=== PATIENT | male | born 1950 | race Caucasian/White ===

== ENCOUNTER → 2016-08-07 | Outpatient (CLI) | payer OTHER | LOC: MW.CHUR 12:56 | PROVIDERS: ATTEND Urology | DX: Z85.51 Personal history of malignant neoplasm of bladder (principal) | CPT/HCPCS: 81001 ==

== ENCOUNTER 2016-09-04 11:38 | Emergency (ER) | payer OTHER ==
--- NOTE | 2016-09-04 12:37 | EDM.PDOC ---
ED HPI LOWER BACK PAIN/INJURY - General Chief Complaint: Back Pain or Injury Stated Complaint: LEFT BACK PAIN Time Seen by Provider: 09/04/16 12:10 Source of Information: Reports: Patient History Limitations: Reports: No limitations - History of Present Illness INITIAL COMMENTS - FREE TEXT/NARRATIVE: HISTORY AND PHYSICAL: History of present illness: [Patient comes to the emergency room complaining of pain to his left flank area. 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 States that the pain began around 1 AM yesterday morning and has gradually gotten worse since onset. 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 Pain has gradually worsened over the past day. When he is at rest the pain is 3/10. With activity the pain is 7-8/ 10. Has not taken any medications for his pain. He denies having any radiation of pain into his abdomen and groin. The pain is just over the left flank area. He had left lower rib fractures in May 2016. Had a history of ureteroscopy in the mid . Stone or obstruction was found. He states that today's pain feels similar. Denies fever and chills, chest pain shortness of breath and difficulty breathing. No recent illnesses or infection. Has felt some nausea when pain is at its worst but no vomiting. No change in bowel or bladder. He denies hematuria dysuria urinary frequency. No swelling in his feet or lower legs. Has a history of migraine headaches] Review of systems: As per history of present illness and below otherwise all systems reviewed and negative. Past medical history: As per history of present illness and as reviewed below otherwise noncontributory. Surgical history: As per history of present illness and as reviewed below otherwise noncontributory. Social history: No reported history of drug or alcohol abuse. Family history: As per history of present illness and as reviewed below otherwise noncontributory. Physical exam: HEENT: Atraumatic, normocephalic. oral mucous membranes moist, throat clear., neck supple, nontender, no lymphadenopathy. Lungs: Clear to auscultation, breath sounds equal bilaterally, chest nontender. Heart: S1S2, regular, negative for clicks, rubs, or JVD. Abdomen: Bowel sounds are normoactive throughout. Soft, nondistended, nontender. Negative for masses or hepatosplenomegaly. Tender over left flank and left posterior lower ribs. Pelvis: Stable nontender. Genitourinary: Deferred. Rectal: Deferred. Extremities: Atraumatic, negative for cords or calf pain. Cyanosis or edema to feet or lower legs. Neurovascular unremarkable. Neuro: Awake, alert, oriented. Cranial nerves II through XII unremarkable. Motor and sensory unremarkable throughout. Exam nonfocal. Diagnostics: [UA with micro, CT abdomen and pelvis without contrast Urinalysis is unremarkable. CT shows no stones. Incidental findings of diverticulosis.] Impression: [Left posterior lower rib pain] Plan: [Discussed with patient that his CT and urinalysis are completely normal. Other than incidental finding of diverticulosis. Discussed with patient that since tests in the ER are unremarkable, the cause of his discomfort is likely due to the rib fractures he sustained previously. he declines pain medication given in the ER and states that he will take the tramadol that he has at home. Recommend the patient continue to monitor and followup in ER as needed. Recheck with PCP in 48-72 hours. He verbalized understanding of today's plan, all questions are answered and concerns are addressed.] Definitive disposition and diagnosis as appropriate pending reevaluation and review of above. - Related Data Allergies/ADRs: Allergies Allergy/AdvReac Type Severity Reaction Status Date / Time ibuprofen Allergy Stomach Verified 09/04/16 11:57 Upset morphine Allergy Difficulty Verified 09/04/16 11:57 Breathing Home Meds: Home Meds Aspirin [Children's Aspirin] 81 mg PO DAILY 07/09/14 [History] Cyclobenzaprine [Flexeril] 1 tab PO ASDIRECTED PRN 11/24/14 [History] Multivitamin [Multiple Vitamins] 1 tab PO DAILY 11/24/14 [History] traMADol [Ultram] 1 tab PO ASDIRECTED PRN 11/24/14 [History] Omeprazole 20 mg PO DAILY 01/16/15 [History] Simvastatin [Zocor] 40 mg PO DAILY 01/16/15 [History] Ascorbic Acid [Vitamin C] 2,000 mg PO DAILY 06/04/16 [History] Calcium Polycarbophil [Fibercon] 1 tab PO DAILY 06/04/16 [History] Lutein 10 mg PO DAILY 06/04/16 [History] Vitamin A 30,000 units PO DAILY 06/04/16 [History] Vitamin E 2 caplet PO DAILY 06/04/16 [History] Amitriptyline [Elavil] 25 mg PO BEDTIME 09/04/16 [History] Omeprazole Magnesium [Prilosec Otc] 0 mg PO BID 09/04/16 [History] Past Medical History HEENT History: Reports: Other (see below) Other HEENT History: wears glasses Cardiovascular History: Reports: High cholesterol Other Respiratory History: Reports 20 plus years of smoking current use 1/2 pack / day Gastrointestinal History: Reports: GERD Other Genitourinary History: Hematuria Musculoskeletal History: Reports: Back pain, chronic Neurological History: Reports: Headaches, chronic, Migraines Other Neuro History: hx of head trauma from accident Other Hematologic History: Current hematuria - Infectious Disease History Infectious Disease History: Reports: Chicken pox - Past Surgical History Head Surgeries/Procedures: Reports: None Other Cardiovascular Surgeries/Procedures: H: Angiogram Other Male Surgeries/Procedures: Current bladder tumor Neurological Surgical History: Reports: Lumbar spine Other Neurological Surgeries/Procedures: "back surgery" Musculoskeletal Surgical History: Reports: Arthroscopic knee Other Musculoskeletal Surgeries/Procedures:: Right Knee Scope, Compression fracture to Low back, chronic back spasms Social & Family History - Family History Family Medical History: Noncontributory - Tobacco Use Smoking Status *Q: Current Every Day Smoker Years of Tobacco use: 30 Packs/Tins Daily: 1 Used Tobacco, but Quit: No Second Hand Smoke Exposure: Yes - Caffeine Use Caffeine Use: Reports: Coffee - Alcohol Use Days Per Week of Alcohol Use: 0 - Recreational Drug Use Recreational Drug Use: No Drug Use in Last 12 Months: No ED ROS GENERAL - Review of Systems Review Of Systems: ROS reveals no pertinent complaints other than HPI. ED EXAM,LOWER BACK PAIN/INJURY - Physical Exam Exam: See Below Course - Vital Signs Last Recorded V/S: Last Vital Signs Temp 97.9 F 09/04/16 14:20 Pulse 77 09/04/16 14:20 Resp 16 09/04/16 14:20 BP 134/88 09/04/16 14:20 Pulse Ox 96 09/04/16 14:20 - Orders/Labs/Meds Labs: Laboratory Tests 09/04/16 Range/Units 12:05 Urine Color YELLOW Urine Appearance CLEAR Urine pH 6.0 (5.0-8.0) Ur Specific Agu[place]re 1.010 (1.001-1.035) Urine Protein NEGATIVE (NEGATIVE) mg/dL Urine Glucose (UA) NEGATIVE (NEGATIVE) mg/dL Urine Ketones NEGATIVE (NEGATIVE) mg/dL Urine Occult Blood NEGATIVE (NEGATIVE) Urine Nitrite NEGATIVE (NEGATIVE) Urine Bilirubin NEGATIVE (NEGATIVE) Urine Urobilinogen 0.2 (<2.0) EU/dL Ur Leukocyte Esterase NEGATIVE (NEGATIVE) Urine RBC NONE SEEN (0-2/HPF) Urine WBC NONE SEEN (0-5/HPF) Ur Epithelial Cells RARE (NONE-FEW) Urine Bacteria RARE (NEGATIVE) Departure - Departure Time of Disposition: 14:00 Disposition: Home, Self-Care 01 Condition: good Clinical Impression: Rib pain on left side Instructions: Chest Wall Pain Referrals: Seb Fleming MD [Primary Care Provider] - Forms: ED Department Discharge Additional Instructions: The following information is given to patients seen in the emergency department who are being discharged to home. This information is to outline your options for follow-up care. We provide all patients seen in our emergency department with a follow-up referral. The need for follow-up, as well as the timing and circumstances, are variable depending upon the specifics of your emergency department visit. If you don't have a primary care physician on staff, we will provide you with a referral. We always advise you to contact your personal physician following an emergency department visit to inform them of the circumstance of the visit and for follow-up with them and/or the need for any referrals to a consulting specialist. The emergency department will also refer you to a specialist when appropriate. This referral assures that you have the opportunity for follow-up care with a specialist. All of these measure are taken in an effort to provide you with optimal care, which includes your follow-up. Under all circumstances we always encourage you to contact your private physician who remains a resource for coordinating your care. When calling for follow-up care, please make the office aware that this follow-up is from your recent emergency room visit. If for any reason you are refused follow-up, please contact the [facility] emergency department at and asked to speak to the emergency department charge nurse. [facility] [address] [place] [id number] scan shows no kidney stones. An incidental finding on CT is diverticulosis. Followup with primary care provider in 48-72 hours. Gentle stretching to prevent stiffness your rib area. Take home medications as needed for pain. Return to ER as needed as discussed.
--- NOTE | 2016-09-04 13:40 | CT ---
CT of the abdomen and pelvis without contrast. HISTORY: Pain TECHNIQUE: Axial CT images were obtained of the abdomen and pelvis without contrast. Coronal and sag ittal reconstructions obtained. FINDINGS: The lung bases are clear, no pleural effusion. There is mild focal fatty infiltration near the falciform ligament. The spleen, adrenal glands, and pancreas appear unremarkable for noncontrast examination. The gallbladder appears normal. There is no bulky retroperitoneal lymphadenopathy. No abdominal ascites. There are no calcifications noted within the kidneys or along the courses of the ureters bilaterally . The large and small bowel are normal in caliber without evidence of obstruction. The appendix appear s normal. Minimal diverticulosis is noted. There is no bulky pelvic lymphadenopathy. No free fluid. No free air. The urinary bladder appears normal. There are healing subacute rib fractures. IMPRESSION: 1. No acute findings demonstrated within the abdomen or pelvis. 2. Diverticulosis without evidence diverticulitis. 3. Healing subacute left rib fractures.
[2016-09-04 14:26] VITALS: BP 134/88
== END 2016-09-04 14:20 | disposition home or self-care (01) ==
LOC: MW.ED 11:38
DX: R07.81 Pleurodynia (principal); E78.00 Pure hypercholesterolemia, unspecified; K21.9 Gastro-esophageal reflux disease without esophagitis; F17.210 Nicotine dependence, cigarettes, uncomplicated; Z79.82 Long term (current) use of aspirin; Z79.899 Other long term (current) drug therapy; Z98.890 Other specified postprocedural states; Z88.5 Allergy status to narcotic agent; Z88.6 Allergy status to analgesic agent
CPT/HCPCS: 74176; 74176-26; 81001; 99283; 99283-25

== ENCOUNTER 2017-07-14 12:23 | Observation (INO) | payer MEDICARE, OTHER ==
[2017-07-14] MEDS ORDERED: Sodium Chloride 0.9% 2.5 ML Syringe FLUSH PRN (12:32)
[2017-07-14] MEDS ORDERED: Sodium Chloride 0.9% 10 ML Syringe FLUSH PRN (12:32)
--- NOTE | 2017-07-14 12:34 | EDM.PDOC ---
ED HPI GENERAL MEDICAL PROBLEM - General Chief Complaint: Respiratory Problem Stated Complaint: CHEST PAIN Time Seen by Provider: 07/14/17 12:26 Source of Information: Reports: Patient History Limitations: Reports: No Limitations - History of Present Illness INITIAL COMMENTS - FREE TEXT/NARRATIVE: History of present illness: []Patient saw Dr. Fleming last week and his metoprolol dose was doubled. Since then he has been feeling more short of breath and tired. Has had some chest tightness with exertion the last episode being at 8:00 this morning lasting approximately 5 minutes. Patient does have a history of a MA while the stent was being placed in [facility] by Dr. Orantes in June. Review of systems: As per history of present illness and below otherwise all systems reviewed and negative. Past medical history: As per history of present illness and as reviewed below otherwise noncontributory. Surgical history: As per history of present illness and as reviewed below otherwise noncontributory. Social history: No reported history of drug or alcohol abuse. Family history: As per history of present illness and as reviewed below otherwise noncontributory. Physical exam: General: Well developed, well nourished in NAD HEENT: Atraumatic, normocephalic, pupils reactive, negative for conjunctival pallor or scleral icterus, mucous membranes moist, throat clear, neck supple, nontender, trachea midline. Lungs: Clear to auscultation, breath sounds equal bilaterally, chest nontender. Heart: S1S2, regular, negative for clicks, rubs, or JVD. Abdomen: Soft, nondistended, nontender. Negative for masses or hepatosplenomegaly. Negative for costovertebral tenderness. Pelvis: Stable nontender. Genitourinary: Deferred. Rectal: Deferred. Extremities: Atraumatic, negative for cords or calf pain. Neurovascular unremarkable. Neuro: Awake, alert, oriented. Cranial nerves II through XII unremarkable. Cerebellum unremarkable. Motor and sensory unremarkable throughout. Exam nonfocal. Diagnostics: []EKG, chest, labs all negative for acute MA abnormalities Therapeutics: []Patient was observed in the ED while awaiting lab results and develop substernal chest pain radiated to his right arm. At this point I did consult freight broker agent, Dr. Lundy in [facility] reviewed his case. Did not feel that the origin of his chest pain was from his heart after reviewing his angiogram and following studies. Patient was given nitroglycerin, IV fluids and Dilaudid resolved his pain Impression: []Chest pain Plan: []Admit to hospitalist for rule out MA. Patient has an appointment with Dr. Orantes his freight broker agent in [facility] next week. Definitive disposition and diagnosis as appropriate pending reevaluation and review of above. Mid-Sternal Chest Pain Score (Numeric/FACES): 4 - Related Data Allergies Allergy/AdvReac Type Severity Reaction Status Date / Time ibuprofen Allergy Stomach Verified 09/04/16 11:57 Upset morphine Allergy Difficulty Verified 09/04/16 11:57 Breathing Home Meds: Home Meds Aspirin [Children's Aspirin] 81 mg PO QPM 07/09/14 [History] Cyclobenzaprine [Flexeril] 10 mg PO TID PRN 11/24/14 [History] Multivitamin [Multiple Vitamins] 1 tab PO DAILY 11/24/14 [History] traMADol [Ultram] 50 mg PO BEDTIME PRN 11/24/14 [History] Omeprazole 20 mg PO BEDTIME 01/16/15 [History] Ascorbic Acid [Vitamin C] 2,000 mg PO DAILY 06/04/16 [History] Lutein 10 mg PO 1200 06/04/16 [History] Vitamin A 30,000 units PO 1200 06/04/16 [History] Vitamin E 800 unit PO 1200 06/04/16 [History] Amitriptyline [Elavil] 25 mg PO BEDTIME 09/04/16 [History] Clopidogrel Bisulfate [Clopidogrel] 75 mg PO DAILY 07/14/17 [History] Ezetimibe 10 mg PO DAILY 07/14/17 [History] Famotidine 20 mg PO BID 07/14/17 [History] Isosorbide Mononitrate [Isosorbide Mononitrate ER] 30 mg PO DAILY 07/14/17 [ History] Metoprolol Succinate 25 mg PO QPM 07/14/17 [History] Rosuvastatin [Crestor] 20 mg PO QPM 07/14/17 [History] amLODIPine [Norvasc] 5 mg PO DAILY 07/14/17 [History] Past Medical History HEENT History: Reports: Other (See Below) Other HEENT History: wears glasses Cardiovascular History: Reports: High Cholesterol Other Respiratory History: Reports 20 plus years of smoking current use 1/2 pack / day Gastrointestinal History: Reports: GERD Other Genitourinary History: Hematuria Musculoskeletal History: Reports: Back Pain, Chronic Neurological History: Reports: Headaches, Chronic, Migraines Other Neuro History: hx of head trauma from accident Other Hematologic History: Current hematuria - Infectious Disease History Infectious Disease History: Reports: Chicken Pox - Past Surgical History Male Surgical History: Reports: TURBT-Transurethral Resection of Bladder Tumor Neurological Surgical History: Reports: Lumbar Spine Musculoskeletal Surgical History: Reports: Arthroscopic Knee Social & Family History - Family History Family Medical History: Noncontributory - Tobacco Use Smoking Status *Q: Current Every Day Smoker Years of Tobacco use: 30 Packs/Tins Daily: 1 Used Tobacco, but Quit: No Second Hand Smoke Exposure: Yes - Caffeine Use Caffeine Use: Reports: Coffee - Alcohol Use Days Per Week of Alcohol Use: 0 - Recreational Drug Use Recreational Drug Use: No Drug Use in Last 12 Months: No ED ROS GENERAL - Review of Systems Review Of Systems: See Below (See history of present illness) ED EXAM, GENERAL - Physical Exam Exam: See Below (See history of present illness) Course - Vital Signs Last Recorded V/S: Last Vital Signs Temp 97.8 F 07/14/17 12:25 Pulse 97 07/14/17 13:59 Resp 16 07/14/17 12:25 BP 123/81 07/14/17 13:59 Pulse Ox 94 L 07/14/17 12:25 - Orders/Labs/Meds Orders: Active Orders 24 hr Category Date Time Status Patient Status [ADT] Stat ADT 07/14/17 14:09 Active EKG Documentation Completion [RC] STAT Care 07/14/17 12:32 Active EKG Documentation Completion [RC] STAT Care 07/14/17 13:30 Active HYDROmorphone [Dilaudid] Med 07/14/17 14:05 Active 0.5 mg IVPUSH Q1H PRN Sodium Chloride 0.9% [Normal Saline] 1,000 ml Med 07/14/17 14:14 Active IV STAT Sodium Chloride 0.9% [Saline Flush] Med 07/14/17 12:32 Active 10 ml FLUSH ASDIRECTED PRN Sodium Chloride 0.9% [Saline Flush] Med 07/14/17 12:32 Active 2.5 ml FLUSH ASDIRECTED PRN Saline Lock Insert [OM.PC] Stat Oth 07/14/17 12:32 Ordered Medication Orders Hydromorphone HCl (Dilaudid) 0.5 mg IVPUSH Q1H PRN PRN Reason: Pain Last Admin: 07/14/17 14:17 Dose: 0.5 mg Sodium Chloride (Normal Saline) 1,000 mls @ 150 mls/hr IV STAT ONE Stop: 07/14/17 20:53 Last Admin: 07/14/17 14:18 Dose: 150 mls/hr Sodium Chloride (Saline Flush) 10 ml FLUSH ASDIRECTED PRN PRN Reason: Keep Vein Open Last Admin: 07/14/17 13:00 Dose: 10 ml Sodium Chloride (Saline Flush) 2.5 ml FLUSH ASDIRECTED PRN PRN Reason: Keep Vein Open Last Admin: 07/14/17 13:00 Dose: 2.5 ml Labs: Laboratory Tests 07/14/17 07/14/17 07/14/17 Range/Units 12:52 12:52 12:52 WBC 7.29 (4.0-11.0) K/uL RBC 4.69 (4.50-5.90) M/uL Hgb 14.6 (13.0-17.0) g/dL Hct 42.7 (38.0-50.0) % MCV 91.0 (80.0-98.0) fL MCH 31.1 (27.0-32.0) pg MCHC 34.2 (31.0-37.0) g/dL RDW Std Deviation 45.0 (28.0-62.0) fl RDW Coeff of Joesph 14 (11.0-15.0) % Plt Count 182 (150-400) K/uL MPV 9.40 (7.40-12.00) fL Neut % (Auto) 57.9 (48.0-80.0) % Lymph % (Auto) 28.5 (16.0-40.0) % Knox % (Auto) 11.0 (0.0-15.0) % Eos % (Auto) 2.3 (0.0-7.0) % Baso % (Auto) 0.3 (0.0-1.5) % Neut # (Auto) 4.2 (1.4-5.7) K/uL Lymph # (Auto) 2.1 (0.6-2.4) K/uL Knox # (Auto) 0.8 (0.0-0.8) K/uL Eos # (Auto) 0.2 (0.0-0.7) K/uL Baso # (Auto) 0.0 (0.0-0.1) K/uL Nucleated RBC % 0.0 /100WBC Nucleated RBCs # 0 K/uL Sodium 139 (136-146) mmol/L Potassium 4.1 (3.5-5.1) mmol/L Chloride 106 (98-110) mmol/L Carbon Dioxide 21 (21-31) mmol/L BUN 8 (6.0-23.0) mg/dL Creatinine 0.9 (0.6-1.5) mg/dL Est Cr Clr Drug Dosing TNP Estimated GFR (MDRD) > 60.0 ml/min Glucose 98 (60-110) mg/dL Calcium 9.2 (8.8-10.8) mg/dL Total Bilirubin 0.4 (0.1-1.5) mg/dL AST 37 (5-40) IU/L ALT 57 H (8-54) IU/L Alkaline Phosphatase 102 (40-150) Troponin I < 0.10 (0.0-0.29) NG/ML B-Natriuretic Peptide < 15 (<100) PG/ML Total Protein 6.9 (6.0-8.0) g/dL Albumin 4.0 (3.4-4.8) g/dL Globulin 2.9 (2.0-3.5) g/dL Albumin/Globulin Ratio 1.4 (1.3-2.8) Meds: Medications Generic Name Dose Route Start Last Admin Trade Name Freq PRN Reason Stop Dose Admin Hydromorphone HCl 0.5 mg 07/14/17 14:05 07/14/17 14:17 Dilaudid IVPUSH 0.5 mg Q1H PRN Administration Pain Sodium Chloride 1,000 mls @ 150 mls/hr 07/14/17 14:14 07/14/17 14:18 Normal Saline IV 07/14/17 20:53 150 mls/hr STAT ONE Administration Sodium Chloride 10 ml 07/14/17 12:32 07/14/17 13:00 Saline Flush FLUSH 10 ml ASDIRECTED PRN Administration Keep Vein Open Sodium Chloride 2.5 ml 07/14/17 12:32 07/14/17 13:00 Saline Flush FLUSH 2.5 ml ASDIRECTED PRN Administration Keep Vein Open Discontinued Medications Generic Name Dose Route Start Last Admin Trade Name Freq PRN Reason Stop Dose Admin Metoprolol Tartrate 5 mg 07/14/17 13:45 07/14/17 13:59 Lopressor IVPUSH 07/14/17 13:56 5 mg Q5M YANNICK Administration Nitroglycerin 0.4 mg 07/14/17 13:21 07/14/17 13:34 Nitrostat SL 0.4 mg Q5M PRN Administration Chest Pain Nitroglycerin Confirm 07/14/17 13:22 07/14/17 13:24 Nitrostat Administered 07/14/17 13:23 Not Given Dose 0.4 mg .ROUTE .STK-MED ONE Departure - Departure Time of Disposition: 14:53 Disposition: Refer to Observation Condition: Good Clinical Impression: Chest pain Qualifiers: Chest pain type: unspecified Qualified Code(s): R07.9 - Chest pain, unspecified - Discharge Information Forms: ED Department Discharge - My Orders Last 24 Hours: My Active Orders 07/14/17 12:32 EKG Documentation Completion [RC] STAT Sodium Chloride 0.9% [Saline Flush] 10 ml FLUSH ASDIRECTED PRN Sodium Chloride 0.9% [Saline Flush] 2.5 ml FLUSH ASDIRECTED PRN Saline Lock Insert [OM.PC] Stat 07/14/17 13:30 EKG Documentation Completion [RC] STAT 07/14/17 14:05 HYDROmorphone [Dilaudid] 0.5 mg IVPUSH Q1H PRN 07/14/17 14:09 Patient Status [ADT] Stat 07/14/17 14:14 Sodium Chloride 0.9% [Normal Saline] 1,000 ml IV STAT - Assessment/Plan Last 24 Hours: My Active Orders 07/14/17 12:32 EKG Documentation Completion [RC] STAT Sodium Chloride 0.9% [Saline Flush] 10 ml FLUSH ASDIRECTED PRN Sodium Chloride 0.9% [Saline Flush] 2.5 ml FLUSH ASDIRECTED PRN Saline Lock Insert [OM.PC] Stat 07/14/17 13:30 EKG Documentation Completion [RC] STAT 07/14/17 14:05 HYDROmorphone [Dilaudid] 0.5 mg IVPUSH Q1H PRN 07/14/17 14:09 Patient Status [ADT] Stat 07/14/17 14:14 Sodium Chloride 0.9% [Normal Saline] 1,000 ml IV STAT
[2017-07-14] MEDS ORDERED: Nitroglycerin 0.4 MG Tab.SL ONE (13:22)
[2017-07-14] MEDS: Nitroglycerin 0.4 MG Tab.SL SL PRN ×3 (13:23→13:34)
--- NOTE | 2017-07-14 13:23 | CR ---
EXAMINATION: Portable chest radiograph. HISTORY: Shortness of breath. Comparison: 05/05/2016. FINDINGS: The trachea is midline. The cardiomediastinal silhouette is within normal limits. No pulmonary infilt rates, effusions or pneumothorax. Mild chronic interstitial prominence is noted, grossly stable. Osseous structures appear unremarkable. IMPRESSION: No acute cardiopulmonary process.
[2017-07-14 13:24] LABS: CHLORIDE,CL 106 mmol/L (98-110); SODIUM,NA 139 mmol/L (136-146)
[2017-07-14] MEDS: Metoprolol Tartrate 5 MG/5 ML SDV IVPUSH SCH ×2 (13:59→15:55)
[2017-07-14] MEDS ORDERED: HYDROmorphone 1 MG/ML Syringe IVPUSH PRN (14:05)
[2017-07-14] MEDS ORDERED: Sodium Chloride 0.9% 1,000 ML IV ONE (14:14)
[2017-07-14] MEDS ORDERED: Albuterol/Ipratropium 3.0-0.5 MG/3 ML Neb Soln NEB PRN (15:42)
[2017-07-14] MEDS ORDERED: Acetaminophen 325 MG Tab PO PRN (15:42)
[2017-07-14] MEDS ORDERED: Enoxaparin 30 MG/0.3 ML Syringe SUBCUT SCH (15:45)
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
[2017-07-14] MEDS ORDERED: traMADol 50 MG Tab PO PRN (16:34)
[2017-07-14] MEDS ORDERED: Cyclobenzaprine 10 MG Tab PO PRN (16:34)
[2017-07-14] MEDS ORDERED: Metoprolol Succinate 25 MG Tab.ER PO SCH (18:00)
[2017-07-14] MEDS ORDERED: Aspirin 81 MG Tab.Chew PO SCH (18:00)
[2017-07-14] MEDS ORDERED: Rosuvastatin 10 MG Tab PO SCH (18:00)
[2017-07-14] MEDS: Famotidine 20 MG Tab PO SCH (20:55)
[2017-07-14] MEDS ORDERED: Amitriptyline 25 MG Tab PO SCH (21:00)
[2017-07-14] MEDS ORDERED: Omeprazole 20 MG Cap.CR PO SCH (21:00)
[2017-07-15] MEDS: Famotidine 20 MG Tab PO SCH (08:34)
[2017-07-15 08:35] VITALS: BP 149/73
[2017-07-15] MEDS ORDERED: amLODIPine 2.5 MG Tab PO SCH (09:00)
[2017-07-15] MEDS ORDERED: Clopidogrel 75 MG Tab PO SCH (09:00)
[2017-07-15] MEDS ORDERED: Ezetimibe 10 MG Tab PO SCH (09:00)
[2017-07-15] MEDS ORDERED: Isosorbide Mononitrate 30 MG Tab.ER PO SCH (09:00)
[2017-07-15] MEDS ORDERED: Multivitamin Tab PO SCH (09:00)
[2017-07-15] MEDS ORDERED: Ascorbic Acid 500 MG Tab PO SCH (09:00)
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
[2017-07-15] MEDS ORDERED: Vitamin E (dl-alpha-tocopherol acetate) 400 Unit Cap PO SCH (12:00)
[2017-07-15] MEDS ORDERED: VITAMIN A PO SCH (12:00)
== END 2017-07-15 12:11 | disposition home or self-care (01) ==
LOC: MW.ED 12:23 → MW.MS 14:09 → MW.ED 15:08
PROVIDERS: ADMIT Family Medicine; ATTEND Family Medicine
DX: R07.9 Chest pain, unspecified (principal); I10 Essential (primary) hypertension; K21.9 Gastro-esophageal reflux disease without esophagitis; E78.5 Hyperlipidemia, unspecified; G47.30 Sleep apnea, unspecified; R06.01 Orthopnea; I25.118 Atherosclerotic heart disease of native coronary artery with other forms of angina pectoris; I25.2 Old myocardial infarction; E66.9 Obesity, unspecified; H26.9 Unspecified cataract; G47.10 Hypersomnia, unspecified; Z86.010 Personal history of colon polyps; Z95.5 Presence of coronary angioplasty implant and graft; Z99.89 Dependence on other enabling machines and devices; Z87.891 Personal history of nicotine dependence; Z79.82 Long term (current) use of aspirin; Z79.899 Other long term (current) drug therapy; Z79.02 Long term (current) use of antithrombotics/antiplatelets; Z88.5 Allergy status to narcotic agent; Z88.6 Allergy status to analgesic agent; Z85.51 Personal history of malignant neoplasm of bladder; Z98.890 Other specified postprocedural states; Z68.32 Body mass index [BMI] 32.0-32.9, adult
CPT/HCPCS: 36415; 71045; 80053; 83880; 84484; 85025; 94640; 96361; 96374; 96375; 99285; A9270; G0378; J1170; J7040; 99284

== ENCOUNTER 2019-12-12 09:31 | Day surgery (SDC) | payer MEDICARE, OTHER ==
[~2019-12-12 09:31] MED LIST: Lactated Ringers 1,000 ML IV SCH; Propofol 200 MG/20 ML SDV ONE
--- NOTE | 2019-12-12 10:42 | PCM.PREANE ---
Preanesthetic Assessment - Anesthesia/Transfusion/Family Hx Anesthesia History: Prior Anesthesia Without Reaction Other Type of Anesthesia Reaction Comment: Denies any known problem in past Family History of Anesthesia Reaction: No Transfusion History: No Prior Transfusion(s) Intubation History: Unknown - Review of Systems General: No Symptoms Pulmonary: No Symptoms Cardiovascular: No Symptoms Gastrointestinal: No Symptoms, Other (h/o colon polyps ') Neurological: No Symptoms Other: Reports: None - Physical Assessment Height: 5 ft 6 in Weight: 93.44 kg ASA Class: 3 Mental Status: Alert & Oriented x3 Airway Class: Mallampati = 2 Dentition: Reports: Normal Dentition (uneven edges on front teeth (grinding)) Thyro-Mental Finger Breadths: 3 Mouth Opening Finger Breadths: 2 ROM/Head Extension: Limited/Partial Lungs: Clear to Auscultation, Normal Respiratory Effort Cardiovascular: Regular Rate, Regular Rhythm - Allergies Allergies/Adverse Reactions: Allergies Allergy/AdvReac Type Severity Reaction Status Date / Time codeine Allergy Nausea Verified 12/12/19 10:28 ibuprofen Allergy Stomach Verified 12/12/19 10:28 Upset morphine Allergy Difficulty Verified 12/12/19 10:28 Breathing - Blood Blood Available: No - Anesthesia Plan Pre-Op Medication Ordered: None - Acknowledgements Anesthesia Type Planned: MAC Pt an Appropriate Candidate for the Planned Anesthesia: Yes Alternatives and Risks of Anesthesia Discussed w Pt/Guardian: Yes Pt/Guardian Understands and Agrees with Anesthesia Plan: Yes PreAnesthesia Questionnaire HEENT History: Reports: Cataract, Other (See Below) Other HEENT History: wears glasses Cardiovascular History: Reports: CAD, High Cholesterol, Hypertension, [place] (), PVD (claudications), Other (See Below) (uses NTG every other week during physical activity) Other Cardiovascular History: states he had a heart attack during the angioplasty and then had a stent placed in 2018. Intracoronary radiation therapy in to prevent coronary artery around stent closing- per patient. Respiratory History: Reports: COPD, Sleep Apnea, SOB Other Respiratory History: he beleives his COPD is "chronic bronchitis", uses his inhaler approx. 3x per week- uses CPAP every night Gastrointestinal History: Reports: Colon Polyp, Diverticulosis, GERD Genitourinary History: Other Genitourinary History: Hematuria Musculoskeletal History: Reports: Back Pain, Chronic Neurological History: Reports: Headaches, Chronic, Migraines Other Neuro History: hx of head trauma from accident Psychiatric History: Reports: Anxiety Endocrine/Metabolic History: Reports: Diabetes, Type II (glucose 115 at present time), Obesity/BMI 30+ (MBI 33.2) Hematologic History: Reports: Anticoagulation Therapy - Infectious Disease History Infectious Disease History: Reports: Chicken Pox - Past Surgical History Cardiovascular Surgical History: Reports: Coronary Artery Stent ( (LAD ?)) GI Surgical History: Reports: Colonoscopy (x2 and ) Neurological Surgical History: Reports: Lumbar Spine Musculoskeletal Surgical History: Reports: Arthroscopic Knee - SUBSTANCE USE Smoking Status *Q: Former Smoker (quit ) Tobacco Use Within Last Twelve Months: No Recreational Drug Use History: No - HOME MEDS Home Medications: Home Meds Aspirin [Children's Aspirin] 81 mg PO QPM 07/09/14 [History] Cyclobenzaprine [Flexeril] 10 mg PO TID PRN 11/24/14 [History] Multivitamin [Multiple Vitamins] 1 tab PO DAILY 11/24/14 [History] traMADol [Ultram] 100 mg PO Q6H PRN 11/24/14 [History] Ascorbic Acid [Vitamin C] 1,000 mg PO BID 06/04/16 [History] Lutein 10 mg PO DAILY 06/04/16 [History] Vitamin A 30,000 units PO DAILY 06/04/16 [History] Vitamin E 400 unit PO DAILY 06/04/16 [History] Amitriptyline [Elavil] 25 mg PO BEDTIME 09/04/16 [History] Clopidogrel Bisulfate [Clopidogrel] 75 mg PO DAILY 07/14/17 [History] Ezetimibe 10 mg PO DAILY 07/14/17 [History] Isosorbide Mononitrate [Isosorbide Mononitrate ER] 60 mg PO QAM 07/14/17 [History] Rosuvastatin [Crestor] 40 mg PO QPM 07/14/17 [History] Albuterol [Proair HFA] 1 - 2 puff INH Q4HR PRN #1 inhaler 07/15/17 [Rx] Nitroglycerin 0.4 mg SL ASDIRECTED PRN 06/28/19 [History] Pantoprazole Sodium 40 mg PO DAILY 06/28/19 [History] Ranolazine [Ranolazine ER] 1,000 mg PO BID 06/28/19 [History] metFORMIN HCl [Metformin HCl ER] 500 mg PO BIDMEALS 06/28/19 [History] Famotidine 20 mg PO BID PRN 12/06/19 [History] Metoprolol Succinate 75 mg PO QPM 12/06/19 [History] Triamcinolone Acetonide [Triamcinolone Acetonide 0.1% Crm] 1 dose TOP BID PRN 12/06/19 [History] amLODIPine Besylate [Amlodipine Besylate] 5 mg PO QPM 12/06/19 [History] - CURRENT (IN HOUSE) MEDS Current Meds: Current Medications Lactated Ringer's (Ringers, Lactated) 1,000 mls @ 125 mls/hr IV ASDIRECTED YANNICK Last Admin: 12/12/19 10:28 Dose: 125 mls/hr Documented by: Discontinued Medications Propofol (Diprivan 20 Ml) Confirm Administered Dose 200 mg .ROUTE .STK-MED ONE Stop: 12/12/19 07:19 Propofol (Diprivan 20 Ml) Confirm Administered Dose 200 mg .ROUTE .STK-MED ONE Stop: 12/12/19 07:19
[2019-12-12] MEDS ORDERED: Propofol 200 MG/20 ML SDV ONE (11:09)
[2019-12-12] MEDS ORDERED: Lidocaine 2% 5 ML SDV ONE (11:09)
--- NOTE | 2019-12-12 13:38 | PCM.OPNOTE ---
- General Post-Op/Procedure Note Date of Surgery/Procedure: 12/12/19 Pre Op Diagnosis: Personal history of colon polyps Post-Op Diagnosis: Cecal, ascending colon, transverse colon and sigmoid colon polyps Anesthesia Technique: MAC (ASA III) Primary Surgeon: Inocencio Molina Choke Reamer: Glo Ellis Condition: Good Free Text/Narrative:: DICTATION [id number] CPT CODE [id number]
[2019-12-12] MEDS ORDERED: Lactated Ringers 1,000 ML IV SCH (13:45)
--- NOTE | 2019-12-12 14:05 | PCM.POSTAN ---
POST ANESTHESIA ASSESSMENT - MENTAL STATUS Mental Status: Alert, Oriented - VITAL SIGNS Vital Signs: Last Vital Signs Temp 37.3 C 12/12/19 13:36 Pulse 74 12/12/19 14:00 Resp 3 L 12/12/19 14:00 BP 107/69 12/12/19 14:00 Pulse Ox 94 L 12/12/19 14:00 - RESPIRATORY Respiratory Status: Respiratory Rate WNL, Airway Patent, O2 Saturation Stable - CARDIOVASCULAR CV Status: Pulse Rate WNL, Blood Pressure Stable - GASTROINTESTINAL GI Status: No Symptoms - PAIN Pain Score: 0 - POST OP HYDRATION Hydration Status: Adequate & Stable - OBSERVATIONS Free Text/Narrative:: No anesthesia problems
--- NOTE | 2019-12-12 14:28 | PCM48HPAN ---
Post Anesthesia Note - EVALUATION WITHIN 48HRS OF ANESTHETIC Vital Signs in Normal Range: Yes Patient Participated in Evaluation: Yes Respiratory Function Stable: Yes Airway Patent: Yes Cardiovascular Function Stable: Yes Hydration Status Stable: Yes Pain Control Satisfactory: Yes Nausea and Vomiting Control Satisfactory: Yes Mental Status Recovered: Yes Vital Signs: Last Vital Signs Temp 37.3 C 12/12/19 13:36 Pulse 74 12/12/19 14:00 Resp 3 L 12/12/19 14:00 BP 107/69 12/12/19 14:00 Pulse Ox 94 L 12/12/19 14:00 - COMMENTS/OBSERVATIONS Free Text/Narrative:: no anesthesia problems
--- NOTE | 2019-12-12 15:01 | OR ---
SURGEON: Inocencio Molina M.D. DATE OF PROCEDURE: 12/12/2019 OPERATION PERFORMED: Colonoscopy with multiple cold polypectomies from the cecum, ascending colon, transverse colon, and sigmoid colon. PRIMARY SURGEON: Inocencio Molina MD. ANESTHESIA: MAC. ASA CLASSIFICATION: III. REGULATORY COORDINATOR: DONG Lo student. DESCRIPTION OF PROCEDURE: The patient was taken to the endoscopy room and positioned on the endoscopy table in the left lateral decubitus position. Time-out was called for appropriate identification of the patient and procedure. Monitored anesthesia care was provided. The colonoscope was inserted into the rectum and advanced with moderate difficulty to the cecum where the colonoscope was retroflexed to visualize the ascending colon from below then straightened and slowly withdrawn. The patient did have polyps in the cecum, ascending colon, transverse colon, and the sigmoid colon. As these were encountered, they were serially removed and sent for separate histologic analysis. The colonoscope was then withdrawn carefully visualizing the remainder of the ascending colon, hepatic flexure, transverse colon, splenic flexure, descending colon, sigmoid colon, and rectum. Other than the polyps mentioned above, no diverticular changes were noted. There was no evidence of inflammatory bowel disease. Once the colonoscope was withdrawn to the rectum, it was retroflexed to visualize the anal orifice from above. Again, no tumors or polyps were seen and there were no acute hemorrhoidal changes. The colonoscope was then straightened, the rectum aspirated, and the colonoscope removed. The patient did tolerate the procedure well and was taken to recovery room in stable condition. JACQUELINE / SUYAPA /[id number]
[2019-12-12 15:07] VITALS: BP 111/67; PULSE 72
== END 2019-12-12 14:40 | disposition home or self-care (01) ==
LOC: MW.SDS 09:31
PROVIDERS: ATTEND Surgery
DX: Z12.11 Encounter for screening for malignant neoplasm of colon (principal); D12.3 Benign neoplasm of transverse colon; D12.5 Benign neoplasm of sigmoid colon; D12.2 Benign neoplasm of ascending colon; J44.9 Chronic obstructive pulmonary disease, unspecified; I25.10 Atherosclerotic heart disease of native coronary artery without angina pectoris; K21.9 Gastro-esophageal reflux disease without esophagitis; I25.2 Old myocardial infarction; E78.00 Pure hypercholesterolemia, unspecified; M48.061 Spinal stenosis, lumbar region without neurogenic claudication; G47.33 Obstructive sleep apnea (adult) (pediatric); E11.51 Type 2 diabetes mellitus with diabetic peripheral angiopathy without gangrene; F41.9 Anxiety disorder, unspecified; Z85.51 Personal history of malignant neoplasm of bladder; Z79.899 Other long term (current) drug therapy; Z79.82 Long term (current) use of aspirin; Z79.84 Long term (current) use of oral hypoglycemic drugs; Z79.51 Long term (current) use of inhaled steroids; Z95.5 Presence of coronary angioplasty implant and graft; Z87.891 Personal history of nicotine dependence; Z72.89 Other problems related to lifestyle; Z68.33 Body mass index [BMI] 33.0-33.9, adult; Z87.19 Personal history of other diseases of the digestive system; Z88.8 Allergy status to other drugs, medicaments and biological substances; Z88.5 Allergy status to narcotic agent; Z86.010 Personal history of colon polyps; Z86.018 Personal history of other benign neoplasm; Z99.89 Dependence on other enabling machines and devices
CPT/HCPCS: 45380; J2001; J2704; J7120; 00812; 82962; 88305

== ENCOUNTER 2020-04-09 12:12 | Emergency (ER) | payer MEDICARE, OTHER ==
[2020-04-09] MEDS ORDERED: Sodium Chloride 0.9% 10 ML Syringe FLUSH PRN (12:19)
[2020-04-09] MEDS ORDERED: Sodium Chloride 0.9% 2.5 ML Syringe FLUSH PRN (12:19)
--- NOTE | 2020-04-09 12:19 | EDM.PDOC ---
ED HPI GENERAL MEDICAL PROBLEM - General Chief Complaint: Trauma Stated Complaint: FELL Time Seen by Provider: 04/09/20 12:13 Source of Information: Reports: Patient, EMS History Limitations: Reports: No Limitations - History of Present Illness INITIAL COMMENTS - FREE TEXT/NARRATIVE: 69-year-old male past medical history hypertension, CAD status post stent, hyperlipidemia, obesity presents after a fall from top of a 6 foot ladder. Ladder collapsed on him causing him to fall landing on his right side. He notes pain in his right forearm, and right torso with some overlying bruising. Denies shortness of breath. Denies nausea vomiting, LOC, pain in neck. Patient is not on any anticoagulants, but is on Plavix and baby aspirin. Right Side Pain Score (Numeric/FACES): 6 - Related Data Allergies Allergy/AdvReac Type Severity Reaction Status Date / Time aspirin Allergy Nausea Verified 04/09/20 12:17 codeine Allergy Nausea Verified 12/12/19 10:28 ibuprofen Allergy Stomach Verified 12/12/19 10:28 Upset morphine Allergy Difficulty Verified 12/12/19 10:28 Breathing Home Meds: Home Meds Aspirin [Children's Aspirin] 81 mg PO QPM 07/09/14 [History] Cyclobenzaprine [Flexeril] 10 mg PO TID PRN 11/24/14 [History] Multivitamin [Multiple Vitamins] 1 tab PO DAILY 11/24/14 [History] traMADol [Ultram] 100 mg PO Q6H PRN 11/24/14 [History] Ascorbic Acid [Vitamin C] 1,000 mg PO BID 06/04/16 [History] Lutein 10 mg PO DAILY 06/04/16 [History] Vitamin A 30,000 units PO DAILY 06/04/16 [History] Vitamin E 400 unit PO DAILY 06/04/16 [History] Amitriptyline [Elavil] 25 mg PO BEDTIME 09/04/16 [History] Clopidogrel Bisulfate [Clopidogrel] 75 mg PO DAILY 07/14/17 [History] Ezetimibe 10 mg PO DAILY 07/14/17 [History] Isosorbide Mononitrate [Isosorbide Mononitrate ER] 60 mg PO QAM 07/14/17 [History] Rosuvastatin [Crestor] 40 mg PO QPM 07/14/17 [History] Albuterol [Proair HFA] 1 - 2 puff INH Q4HR PRN #1 inhaler 07/15/17 [Rx] Nitroglycerin 0.4 mg SL ASDIRECTED PRN 06/28/19 [History] Pantoprazole Sodium 40 mg PO DAILY 06/28/19 [History] Ranolazine [Ranolazine ER] 1,000 mg PO BID 06/28/19 [History] metFORMIN HCl [Metformin HCl ER] 500 mg PO BIDMEALS 06/28/19 [History] Famotidine 20 mg PO BID PRN 12/06/19 [History] Metoprolol Succinate 75 mg PO QPM 12/06/19 [History] Triamcinolone Acetonide [Triamcinolone Acetonide 0.1% Crm] 1 dose TOP BID PRN 12/06/19 [History] amLODIPine Besylate [Amlodipine Besylate] 5 mg PO QPM 12/06/19 [History] Ibuprofen 400 mg PO Q6H PRN #28 tablet 04/09/20 [Rx] oxyCODONE HCl/Acetaminophen [Percocet 10-325 mg Tablet] 1 each PO Q4H PRN #18 tablet 04/09/20 [Rx] Past Medical History HEENT History: Reports: Cataract, Other (See Below) Other HEENT History: wears glasses Cardiovascular History: Reports: CAD, High Cholesterol, Hypertension, [place], PVD, Other (See Below) Other Cardiovascular History: states he had a heart attack during the angioplasty and then had a stent placed in 2018. Intracoronary radiation therapy in to prevent coronary artery around stent closing- per patient. Respiratory History: Reports: COPD, Sleep Apnea, SOB Other Respiratory History: he beleives his COPD is "chronic bronchitis", uses his inhaler approx. 3x per week- uses CPAP every night Gastrointestinal History: Reports: Colon Polyp, Diverticulosis, GERD Genitourinary History: Other Genitourinary History: Hematuria Musculoskeletal History: Reports: Back Pain, Chronic Neurological History: Reports: Headaches, Chronic, Migraines Other Neuro History: hx of head trauma from accident Psychiatric History: Reports: Anxiety Endocrine/Metabolic History: Reports: Diabetes, Type II, Obesity/BMI 30+ Hematologic History: Reports: Anticoagulation Therapy - Infectious Disease History Infectious Disease History: Reports: Chicken Pox - Past Surgical History Head Surgeries/Procedures: Reports: None Cardiovascular Surgical History: Reports: Coronary Artery Stent Other Cardiovascular Surgeries/Procedures: reports stent placed on 06/17/2017 GI Surgical History: Reports: Colonoscopy Male Surgical History: Reports: TURBT-Transurethral Resection of Bladder Tumor Other Male Surgeries/Procedures: states bladder tumors were benign Neurological Surgical History: Reports: Lumbar Spine Other Neurological Surgeries/Procedures: "back surgery" Musculoskeletal Surgical History: Reports: Arthroscopic Knee Other Musculoskeletal Surgeries/Procedures:: Right Knee Scope, Compression fracture to Low back, chronic back spasms Social & Family History - Family History Family Medical History: Noncontributory - Caffeine Use Caffeine Use: Reports: Coffee - Living Situation & Occupation Living situation: Reports: Occupation: Retired Review of Systems - Review of Systems Review Of Systems: Comprehensive ROS is negative, except as noted in HPI. ED EXAM, GENERAL - Physical Exam Exam: See Below Exam Limited By: No Limitations General Appearance: Alert, WD/WN, No Apparent Distress Eye Exam: Bilateral Eye: EOMI, PERRL Ears: Normal External Exam Nose: Normal Inspection Throat/Mouth: Normal Voice, No Airway Compromise Head: Atraumatic, Normocephalic Neck: Normal Inspection, Non-Tender. No: Tender Midline Respiratory/Chest: No Respiratory Distress, Lungs Clear, Normal Breath Sounds, No Accessory Muscle Use, Other (TTP and ecchymosis right lateral chest wall) Cardiovascular: Normal Peripheral Pulses, Regular Rate, Rhythm GI/Abdominal: Soft, Non-Tender Back Exam: Normal Inspection. No: Vertebral Tenderness Extremities: Other (TTP of right wrist/forearm w/ overlying swelling/deformity and overlying abrasion, no repairable lacerations) Neurological: Alert, Oriented Psychiatric: Normal Affect, Normal Mood Skin Exam: Warm, Dry #1 Interpretation EKG Date: 04/09/20 Time: 13:08 Rhythm: NSR Rate (Beats/Min): 74 [place]: Normal P-Wave: Present QRS: Normal ST-T: Normal QT: Normal HI/PQ Interval: 180 Comparison: NA - No Prior EKG Course - Orders/Labs/Meds Orders: Active Orders 24 hr Category Date Time Status EKG Documentation Completion [RC] STAT Care 04/09/20 12:19 Active Incentive Spirometry [RT Incentive Spirometry] [RC] Care 04/09/20 13:59 Active ASDIRECTED UA W/MEÑO RFLX IF INDICATED [URIN] Stat Lab 04/09/20 12:19 Ordered Sodium Chloride 0.9% [Saline Flush] Med 04/09/20 12:19 Active 10 ml FLUSH ASDIRECTED PRN Sodium Chloride 0.9% [Saline Flush] Med 04/09/20 12:19 Active 2.5 ml FLUSH ASDIRECTED PRN Saline Lock Insert [OM.PC] Stat Oth 04/09/20 12:19 Ordered Medication Orders Sodium Chloride (Saline Flush) 10 ml FLUSH ASDIRECTED PRN PRN Reason: Keep Vein Open Sodium Chloride (Saline Flush) 2.5 ml FLUSH ASDIRECTED PRN PRN Reason: Keep Vein Open Labs: Laboratory Tests 04/09/20 04/09/20 04/09/20 Range/Units 12:20 12:20 12:20 WBC 8.16 (4.0-11.0) K/uL RBC 4.35 L (4.50-5.90) M/uL Hgb 13.8 (13.0-17.0) g/dL Hct 41.9 (38.0-50.0) % MCV 96.3 (80.0-98.0) fL MCH 31.7 (27.0-32.0) pg MCHC 32.9 (31.0-37.0) g/dL RDW Std Deviation 48.6 (28.0-62.0) fl RDW Coeff of Joesph 14 (11.0-15.0) % Plt Count 168 (150-400) K/uL MPV 9.60 (7.40-12.00) fL Neut % (Auto) 59.6 (48.0-80.0) % Lymph % (Auto) 28.4 (16.0-40.0) % [place] % (Auto) 11.3 (0.0-15.0) % Eos % (Auto) 0.6 (0.0-7.0) % Baso % (Auto) 0.1 (0.0-1.5) % Neut # (Auto) 4.9 (1.4-5.7) K/uL Lymph # (Auto) 2.3 (0.6-2.4) K/uL [place] # (Auto) 0.9 H (0.0-0.8) K/uL Eos # (Auto) 0.1 (0.0-0.7) K/uL Baso # (Auto) 0.0 (0.0-0.1) K/uL Nucleated RBC % 0.0 /100WBC Nucleated RBCs # 0 K/uL INR 1.00 APTT 21.9 (18.6-31.3) SEC Lactate 2.0 (0.20-2.00) mmol/L Sodium (136-148) mmol/L Potassium (3.5-5.1) mmol/L Chloride (98-107) mmol/L Carbon Dioxide (21.0-32.0) mmol/L BUN (7.0-18.0) mg/dL Creatinine (0.8-1.3) mg/dL Est Cr Clr Drug Dosing mL/min Estimated GFR (MDRD) ml/min Glucose (74-106) mg/dL Calcium (8.5-10.1) mg/dL Total Bilirubin (0.2-1.0) mg/dL AST (15-37) IU/L ALT (14-63) IU/L Alkaline Phosphatase (46-116) U/L Troponin I (0.000-0.056) ng/mL Total Protein (6.4-8.2) g/dL Albumin (3.4-5.0) g/dL Globulin (2.6-4.0) g/dL Albumin/Globulin Ratio (0.9-1.6) Lipase (73-393) U/L 04/09/20 Range/Units 12:20 WBC (4.0-11.0) K/uL RBC (4.50-5.90) M/uL Hgb (13.0-17.0) g/dL Hct (38.0-50.0) % MCV (80.0-98.0) fL MCH (27.0-32.0) pg MCHC (31.0-37.0) g/dL RDW Std Deviation (28.0-62.0) fl RDW Coeff of Joesph (11.0-15.0) % Plt Count (150-400) K/uL MPV (7.40-12.00) fL Neut % (Auto) (48.0-80.0) % Lymph % (Auto) (16.0-40.0) % [place] % (Auto) (0.0-15.0) % Eos % (Auto) (0.0-7.0) % Baso % (Auto) (0.0-1.5) % Neut # (Auto) (1.4-5.7) K/uL Lymph # (Auto) (0.6-2.4) K/uL [place] # (Auto) (0.0-0.8) K/uL Eos # (Auto) (0.0-0.7) K/uL Baso # (Auto) (0.0-0.1) K/uL Nucleated RBC % /100WBC Nucleated RBCs # K/uL INR APTT (18.6-31.3) SEC Lactate (0.20-2.00) mmol/L Sodium 137 (136-148) mmol/L Potassium 4.5 (3.5-5.1) mmol/L Chloride 102 (98-107) mmol/L Carbon Dioxide 26.4 (21.0-32.0) mmol/L BUN 10 (7.0-18.0) mg/dL Creatinine 1.1 (0.8-1.3) mg/dL Est Cr Clr Drug Dosing 56.69 mL/min Estimated GFR (MDRD) > 60.0 ml/min Glucose 110 H (74-106) mg/dL Calcium 8.5 (8.5-10.1) mg/dL Total Bilirubin 0.3 (0.2-1.0) mg/dL AST 24 (15-37) IU/L ALT 38 (14-63) IU/L Alkaline Phosphatase 82 (46-116) U/L Troponin I < 0.050 (0.000-0.056) ng/mL Total Protein 6.2 L (6.4-8.2) g/dL Albumin 3.3 L (3.4-5.0) g/dL Globulin 2.9 (2.6-4.0) g/dL Albumin/Globulin Ratio 1.1 (0.9-1.6) Lipase 132 (73-393) U/L Meds: Medications Generic Name Dose Route Start Last Admin Trade Name Freq PRN Reason Stop Dose Admin Sodium Chloride 10 ml 04/09/20 12:19 Saline Flush FLUSH ASDIRECTED PRN Keep Vein Open Sodium Chloride 2.5 ml 04/09/20 12:19 Saline Flush FLUSH ASDIRECTED PRN Keep Vein Open Discontinued Medications Generic Name Dose Route Start Last Admin Trade Name Ramon PRN Reason Stop Dose Admin Iopamidol 100 ml 04/09/20 13:40 04/09/20 13:43 Isovue Multipack-370 (76%) IVPUSH 04/09/20 13:41 100 ml ONETIME STA Administration - Re-Assessments/Exams Free Text/Narrative Re-Assessment/Exam: 04/09/20 12:23 Considering mechanism, patient's antiplatelet use will get broad trauma imaging and labs. Patient declines analgesia at this time. 04/09/20 14:03 CT imaging is remarkable for an age-indeterminate endplate fracture at T3 and T8. Also remarkable for a right seventh and eighth mildly displaced rib fracture. Patient notes that his pain is well controlled without analgesia. I reassessed the arm now that the imaging is all negative, and he does have a mobile hematoma that was confused for deformity on earlier exam. It is nontender to palpation, patient has full range of motion of elbow and right wrist. Lower suspicion for fracture. Will discharge with pain medication, incentive spirometry. Return precautions for development of pneumonia discus sed. Patient is to follow-up with his primary care physician for further work- up and management. Departure - Departure Time of Disposition: 14:04 Disposition: Home, Self-Care 01 Condition: Good Clinical Impression: Rib fractures Qualifiers: Encounter type: initial encounter Rib fracture type: multiple ribs Fracture type: closed Laterality: right Qualified Code(s): S22.41XA - Multiple fractures of ribs, right side, initial encounter for closed fracture T3 vertebral fracture Qualifiers: Encounter type: initial encounter Fracture type: closed Fracture morphology: unspecified fracture morphology Qualified Code(s): S22.039A - Unspecified fracture of third thoracic vertebra, initial encounter for closed fracture T8 vertebral fracture Qualifiers: Encounter type: initial encounter Fracture type: closed Fracture morphology: unspecified fracture morphology Qualified Code(s): S22.069A - Unspecified fracture of T7-T8 vertebra, initial encounter for closed fracture - Discharge Information Prescriptions: Ibuprofen 400 mg PO Q6H PRN #28 tablet PRN Reason: Pain oxyCODONE HCl/Acetaminophen [Percocet 10-325 mg Tablet] 1 each PO Q4H PRN #18 tablet PRN Reason: Pain Instructions: Rib Fracture, [id number] Referrals: Seb Fleming MD [Primary Care Provider] - Forms: ED Department Discharge Additional Instructions: The following information is given to patients seen in the emergency department who are being discharged to home. This information is to outline your options for follow-up care. We provide all patients seen in our emergency department with a follow-up referral. The need for follow-up, as well as the timing and circumstances, are variable depending upon the specifics of your emergency department visit. If you don't have a primary care physician on staff, we will provide you with a referral. We always advise you to contact your personal physician following an emergency department visit to inform them of the circumstance of the visit and for follow-up with them and/or the need for any referrals to a consulting specialist. The emergency department will also refer you to a specialist when appropriate. This referral assures that you have the opportunity for follow-up care with a specialist. All of these measure are taken in an effort to provide you with optimal care, which includes your follow-up. Under all circumstances we always encourage you to contact your private physician who remains a resource for coordinating your care. When calling for follow-up care, please make the office aware that this follow-up is from your recent emergency room visit. If for any reason you are refused follow-up, please contact the [facility] Emergency Department at and asked to speak to the emergency department charge nurse. Please follow up with your primary care physician. If you do not have a primary care physician, see below: [facility] [address] [place] [id number] [facility] [address] [place] [id number] - My Orders Last 24 Hours: My Active Orders 04/09/20 12:19 EKG Documentation Completion [RC] STAT UA W/MEÑO RFLX IF INDICATED [URIN] Stat Sodium Chloride 0.9% [Saline Flush] 10 ml FLUSH ASDIRECTED PRN Sodium Chloride 0.9% [Saline Flush] 2.5 ml FLUSH ASDIRECTED PRN Saline Lock Insert [OM.PC] Stat 04/09/20 13:59 Incentive Spirometry [RT Incentive Spirometry] [RC] ASDIRECTED - Assessment/Plan Last 24 Hours: My Active Orders 04/09/20 12:19 EKG Documentation Completion [RC] STAT UA W/MEÑO RFLX IF INDICATED [URIN] Stat Sodium Chloride 0.9% [Saline Flush] 10 ml FLUSH ASDIRECTED PRN Sodium Chloride 0.9% [Saline Flush] 2.5 ml FLUSH ASDIRECTED PRN Saline Lock Insert [OM.PC] Stat 04/09/20 13:59 Incentive Spirometry [RT Incentive Spirometry] [RC] ASDIRECTED
--- NOTE | 2020-04-09 13:07 | CR ---
HISTORY: Pain after fall COMPARISON: None available. FINDINGS: The right elbow is examined with AP and lateral views. There is no sign of fracture, dislocation, or joint effusion. The soft tissues are normal in appearance without sign of radio-opaque foreign body. No degenerative disease is seen. IMPRESSION: Normal right elbow. Dictated by Edmond Knapp MD @ Apr 09 2020 1:03PM Signed by Dr. Edmond Knapp @ Apr 09 2020 1:05PM
--- NOTE | 2020-04-09 13:07 | CR ---
INDICATION: Trauma with clinical question of pneumothorax COMPARISON: September 17, 2018 TECHNIQUE: AP upright portable single view study FINDINGS: TUBES AND LINES: None. HEART AND MEDIASTINUM: Heart size top normal.. LUNGS AND PLEURAL SPACES: The lungs appear normal.The pleural spaces are unremarkable. OSSEOUS STRUCTURES: Demineralization and degenerative change. I see no fracture within the limitations of a single-view portable chest radiograph. IMPRESSION: No acute appearing findings Dictated by Faustino Rivas MD @ Apr 09 2020 1:02PM Signed by Dr. Faustino Rivas @ Apr 09 2020 1:05PM
--- NOTE | 2020-04-09 13:13 | CR ---
INDICATION: Pain after fall COMPARISON: None available. TECHNIQUE: AP, lateral, and oblique views of the right wrist are obtained for a total of three views. FINDINGS: There is no sign of acute fracture or dislocation. There is mild deformity of the midportion of the ulnar styloid, suggesting an old, healed, nondisplaced fracture. There is mild deformity of the proximal shaft of the 5th metacarpal consistent with an old, healed fracture. The bones of the carpus are in anatomic alignment with the distal radius. 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 The soft tissues are normal in appearance with no sign of foreign body. IMPRESSION: No sign of acute osseous injury. 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 Old fractures as described above. Dictated by Edmond Knapp MD @ Apr 09 2020 1:03PM Signed by Dr. Edmond Knapp @ Apr 09 2020 1:12PM
[2020-04-09 13:18] LABS: BLOOD UREA NITROGEN,BUN 10 mg/dL (7.0-18.0); CARBON DIOXIDE,CO2 26.4 mmol/L (21.0-32.0); CHLORIDE,CL 102 mmol/L (98-107); GLUCOSE RANDOM 110 mg/dL (74-106); LIPASE 132 U/L (73-393); POTASSIUM,K 4.5 mmol/L (3.5-5.1); SODIUM,NA 137 mmol/L (136-148)
--- NOTE | 2020-04-09 13:34 | CT ---
Indication: Fall from ladder Technique: Volumetric multidetector CT images of the head were obtained without the administration of low osmolar intravenous contrast. Comparison: MRI brain January 02, 2015 Findings: There is no intra-axial or extra-axial fluid collection. There is no mass effect or midline shift. There is age-related cortical atrophy with mild sulcal widening and ex vacuo dilatation of the lateral ventricles. There are chronic small vessel disease changes in the subcortical and periventricular white matter without lost gerber-white differentiation. The orbits and their contents are grossly within normal limits. The bony calvarium is grossly intact. The paranasal sinuses are clear. The mastoid air cells are well aerated. Impression: Minimal age-related changes of the brain acute intracranial abnormality. Please note that all CT scans at this facility use dose modulation, iterative reconstruction, and/or weight-based dosing when appropriate to reduce radiation dose to as low as reasonably achievable. Dictated by Pérez Felix MD @ Apr 09 2020 1:29PM Signed by Dr. Pérez Felix @ Apr 09 2020 1:32PM
--- NOTE | 2020-04-09 13:38 | CT ---
Indication: Fall from ladder Technique: Volumetric multidetector CT images of the chest were obtained after the administration of IV contrast. Contrast Comparison: None available. Findings: The thoracic inlet and thyroid gland are unremarkable. The thoracic aorta is not aneurysmal with minimal scattered atherosclerotic calcification. There is coronary artery calcification. There is no central filling defect to suggest pulmonary embolism. Mildly prominent subcarinal lymph nodes are appreciated otherwise there is no evidence of mediastinal, hilar or axillary adenopathy. There is traction bronchiectasis with predominantly lower lobes. There is extensive emphysematous changes predominantly in the upper lobes with bibasilar atelectasis and parenchymal scar. Subpleural bulla formation is appreciated. There is no evidence of pulmonary mass or suspicious pulmonary nodule. The partially visualized upper abdominal viscera are within normal limits. The thoracic vertebral body heights demonstrate somewhat age indeterminate endplate deformity of the superior T3 and T8 endplates. There is no significant spondylolisthesis or displaced fracture. Impression: Moderate emphysematous changes of the bilateral hemithoraces without evidence of acute traumatic abnormality. There is dependent basilar atelectasis and traction bronchiectasis within the lung bases. Incidental note made of a somewhat age-indeterminate endplate deformity of the superior T3 and T8 endplates without evidence of definite acute abnormality of the thoracic spine. If pain and clinical symptoms continue, follow-up with MRI to assess for subtle edema may be useful for improved characterization. Please note that all CT scans at this facility use dose modulation, iterative reconstruction, and/or weight-based dosing when appropriate to reduce radiation dose to as low as reasonably achievable. Dictated by Pérez Felix MD @ Apr 09 2020 1:32PM Signed by Dr. Pérez Felix @ Apr 09 2020 1:38PM
[2020-04-09] MEDS ORDERED: Iopamidol 755 MG/ML 500 ML Multipack Bottle IVPUSH STA (13:40)
--- NOTE | 2020-04-09 13:40 | CT ---
INDICATION: Pain after fall from ladder. COMPARISON: COMPARISON DATE TECHNIQUE: CT examination of the cervical spine is performed without contrast using spiral technique. 2 mm thick axial, sagittal and coronal reconstructions were made. Please note that all CT scans at this facility use dose modulation, iterative reconstruction, and/or weight-based dosing when appropriate to reduce radiation dose to as low as reasonably achievable. FINDINGS: : There is no sign of fracture or subluxation. The cervical vertebral bodies and intervertebral discs are normal in height and are in anatomic alignment. There is moderate facet arthropathy on the left at C3-4 and C4-5 with mild facet arthropathy on the left at C5-6. There is mild age appropriate primary osteoarthritis of the atlantodental articulation. There is no sign of prevertebral soft tissue swelling. Soft tissue ossification is seen dorsal to the C5 spinous process from previous soft tissue injury. The airway structures are normal in appearance. The visualized skull base is normal in appearance. The visualized inferior brain is normal in appearance for the patient`s age. The apices of the lungs are clear. IMPRESSION: No sign of acute osseous injury to the cervical spine. Degenerative changes as described above. Please note that all CT scans at this facility use dose modulation, iterative reconstruction, and/or weight-based dosing when appropriate to reduce radiation dose to as low as reasonably achievable. Dictated by Edmond Knapp MD @ Apr 09 2020 1:29PM Signed by Dr. Edmond Knapp @ Apr 09 2020 1:38PM
--- NOTE | 2020-04-09 13:40 | CT ---
INDICATION: Trauma COMPARISON: None TECHNIQUE: CT examination of the abdomen and pelvis was performed following the uneventful intravenous administration of 100 cc of Isovue 3 7. Thin section axial images were obtained from the lung bases through the pubic symphysis. Oral contrast was not administered. Please note that all CT scans at this facility use dose modulation, iterative reconstruction, and/or weight-based dosing when appropriate to reduce radiation dose to as low as reasonably achievable. FINDINGS: LUNG BASES: The lung bases as visualized appear normal.The heart size is normal at the lung bases. LIVER/BILIARY SYSTEM:The liver is normal in size and configuration. There is no focal mass and there is no intra- or extra hepatic biliary ductal dilatation.The gall bladder appears normal. ADRENALS: Normal KIDNEYS, URETERS and BLADDER:The kidneys appear normal. No visible mass, calculus or hydronephrosis. The ureters and bladder as visualized appear normal. SPLEEN:Normal appearance. PANCREAS: Appears normal. RETROPERITONEUM and MESENTERY: There is no mass, adenopathy or aortic aneurysm. Atherosclerotic vascular calcification GASTROINTESTINAL SYSTEM: There is no evidence of diverticulitis, colitis, mechanical obstruction, or appendicitis. The small bowel as visualized appears normal.Diverticulosis. Fecal retention PELVIS: No mass, adenopathy or free fluid. OSSEOUS STRUCTURES and ABDOMINAL WALL: There are fractures of the right 8th and 9th ribs and of the left 10th ribs.No significant abdominal wall defect. OTHER: No free fluid or free air. IMPRESSION: 1. Fractures of the right 8th and 9th ribs and possibly a nondisplaced fracture of the left 10th rib. Please be aware that the entirety of the chest is not visible on this study. No contusion, pleural effusion or pneumothorax visible at the limited visualized lung bases. 2. No acute posttraumatic findings within the abdomen and pelvis. Please note that all CT scans at this facility use dose modulation, iterative reconstruction, and/or weight-based dosing when appropriate to reduce radiation dose to as low as reasonably achievable. Dictated by Faustino Rivas MD @ Apr 09 2020 1:29PM Signed by Dr. Faustino Rivas @ Apr 09 2020 1:39PM
--- NOTE | 2020-04-09 13:53 | CT ---
Indication: Trauma Technique: None Comparison: CT examination of the lumbosacral spine was performed comparison this study was re-formatted from the abdomen and pelvis study performed at the same time. Axial, sagittal and coronal images were reviewed Findings: Bone mineral density is decreased. There are moderate degenerative changes diffusely. There is no lytic or blastic lesion, fracture or dislocation identified. The rib fractures described in the abdomen and pelvis report are not well-visualized due to collimation on the current study Impression: Degenerative changes without fracture or destructive process Please note that all CT scans at this facility use dose modulation, iterative reconstruction, and/or weight-based dosing when appropriate to reduce radiation dose to as low as reasonably achievable. Dictated by Faustino Rivas MD @ Apr 09 2020 1:39PM Signed by Dr. Faustino Rivas @ Apr 09 2020 1:50PM
--- NOTE | 2020-04-09 13:55 | CT ---
Indication: Fell off ladder Technique: Volumetric multidetector CT images of the thoracic spine were obtained without the administration of IV contrast. Comparison: None available. Findings: There is somewhat age indeterminate deformity of the superior T3 and T8 vertebral bodies. There is mild straightening of the normal thoracic kyphosis of the lower thoracic spine with otherwise preserved proximal kyphosis. There is mild degenerative disc disease with disc height loss and marginal osteophyte formation. There is no significant spinal canal stenosis or neural foraminal narrowing. There is no displaced fracture or dislocation. The paraspinous soft tissues are grossly within normal limits. Impression: Age indeterminate endplate deformities of the superior T3 and T8 levels without evidence of significant spondylolisthesis or large, displaced fracture. If there is pain in persistent clinical concern follow-up with MRI of the thoracic spine may be useful to assess for subtle edema. Please note that all CT scans at this facility use dose modulation, iterative reconstruction, and/or weight-based dosing when appropriate to reduce radiation dose to as low as reasonably achievable. Dictated by Pérez Felix MD @ Apr 09 2020 1:38PM Signed by Dr. Pérez Felix @ Apr 09 2020 1:54PM
== END 2020-04-09 14:20 | disposition home or self-care (01) ==
LOC: MW.ED 12:12
DX: S22.41XA Multiple fractures of ribs, right side, initial encounter for closed fracture (principal); S22.039A Unspecified fracture of third thoracic vertebra, initial encounter for closed fracture; S22.069A Unspecified fracture of T7-T8 vertebra, initial encounter for closed fracture; I10 Essential (primary) hypertension; I25.10 Atherosclerotic heart disease of native coronary artery without angina pectoris; E78.00 Pure hypercholesterolemia, unspecified; I25.2 Old myocardial infarction; J44.9 Chronic obstructive pulmonary disease, unspecified; K21.9 Gastro-esophageal reflux disease without esophagitis; F41.9 Anxiety disorder, unspecified; E11.9 Type 2 diabetes mellitus without complications; Z79.4 Long term (current) use of insulin; Z79.899 Other long term (current) drug therapy; Z79.82 Long term (current) use of aspirin; Z88.5 Allergy status to narcotic agent; Z88.6 Allergy status to analgesic agent; W11.XXXA Fall on and from ladder, initial encounter
CPT/HCPCS: 36415; 70450; 71045; 71260; 72125; 73070; 73110; 74177; 80053; 83605; 83690; 84484; 85025; 85610; 85730; 93005; 99285; Q9967; 72128; 72128-26; 72131; 72131-26

== ENCOUNTER 2020-10-03 11:49 | Emergency (ER) | payer MEDICARE, OTHER ==
[2020-10-03] MEDS ORDERED: Ketorolac 15 MG/ML SDV IM ONE (12:03)
[2020-10-03] MEDS ORDERED: Cyclobenzaprine 10 MG Tab PO ONE (12:03)
[2020-10-03] MEDS ORDERED: Lidocaine 5% 700 MG Patch TOP ONE (12:03)
--- NOTE | 2020-10-03 12:25 | EDM.PDOC ---
ED HPI GENERAL MEDICAL PROBLEM - General Chief Complaint: Back Pain or Injury Stated Complaint: BACK PAIN Time Seen by Provider: 10/03/20 11:52 - History of Present Illness INITIAL COMMENTS - FREE TEXT/NARRATIVE: HISTORY AND PHYSICAL: History of present illness: This is a 70-year-old gentleman with a history of significant for hypertension and diabetes as well as a compression fracture to his back who presents ER today secondary to acute onset of pain to his lower back that occurred when he was pivoting his 14 foot trailer after parking it behind his own. Patient denies any weakness to his upper or lower extremities. Patient has any paresthesias or numbness to his lower extremities. Patient denies any loss of bowel or bladder function. Patient denies any paresthesias to his perineal region. Patient denies any recent fevers, shakes, chills, nausea, vomiting, diarrhea, dysuria, frequency, urgency. Patient reports that he gets injections to his lower back secondary to chronic pain. Review of systems: As per history of present illness and below otherwise all systems reviewed and negative. Past medical history: As per history of present illness and as reviewed below otherwise noncontributory. Surgical history: As per history of present illness and as reviewed below otherwise noncontributory. Social history: No reported history of drug abuse. Family history: As per history of present illness and as reviewed below otherwise noncontributory. Physical exam: This patient was seen and evaluated during the 2019 SARS-CoV-2 novel coronavirus pandemic period. Community viral transmission is ongoing at time of this encounter and the emergency department is operating under pandemic response procedures. Constitutional: Patient is oriented to person, place, and time. Appears well- developed and well-nourished. No distress. HEENT: Moist mucous membranes Head: Normocephalic and atraumatic Eyes: Right eye exhibits no discharge. Left eye exhibits no discharge. No scleral icterus Neck: Normal range of motion. No tracheal deviation present. Cardiovascular: Normal rate and regular rhythm. Pulmonary: Effort normal, no respiratory distress. Abdominal: No distention Musculoskeletal: Normal range of motion Neurologic: Alert and oriented to person, place and time. Skin: [place], warm and dry. Psychiatric: Normal mood and affect. Behavior is normal. Judgment and thought content normal. Nursing note and vital signs have been reviewed Patient here physical exam significant for tenderness palpation to his L4-L5 region in the midline area. Patient does not have any significant paravertebral tenderness. Patient reports that he received fentanyl by EMS Diagnostics: CT scan of L-spine: No acute pathology to explain the patient's pain. No evidence of nerve root impingement. There are some small disc herniations identified. No acute fracture identified. Therapeutics: Toradol 15 mg IV, Flexeril 10 mg p.o., Lidoderm patch Patient received fentanyl by EMS prior to arrival. Assessment and plan: 2:27 PM: Multiple reevaluations by me throughout the patient's ER stay reveals significant improvement in the patient's pain and discomfort. Patient continues to have no evidence of neurological impingement or impairment. I have reviewed the CT reports with the patient and I recommend that he follow-up with his doctor for his usual injections to assist with his pain. Patient be discharged home and instructed to continue his Ultram and Flexeril at home and will be given a prescription for Lidoderm patches. Reassessment at the time of disposition demonstrates that the patient is in no acute distress. The patient has remained stable throughout the entire ED visit and is without objective evidence for acute process requiring urgent intervention or hospitalization. The patient is stable for discharge, counseling is provided as documented above, discussed symptomatic treatment and specific conditions for return. I have spoken with the patient/caregiver and discussed todays findings, in addition to providing specific details for the plan of care. Questions are answered and there is agreement with the plan. Definitive disposition and diagnosis as appropriate pending reevaluation and review of above. lower back Pain Score (Numeric/FACES): 8 - Related Data Allergies Allergy/AdvReac Type Severity Reaction Status Date / Time aspirin Allergy Nausea Verified 10/03/20 11:54 codeine Allergy Nausea Verified 10/03/20 11:54 ibuprofen Allergy Stomach Verified 10/03/20 11:54 Upset morphine Allergy Difficulty Verified 10/03/20 11:54 Breathing Home Meds: Home Meds Aspirin [Children's Aspirin] 81 mg PO QPM 07/09/14 [History] Cyclobenzaprine [Flexeril] 10 mg PO TID PRN 11/24/14 [History] Multivitamin [Multiple Vitamins] 1 tab PO DAILY 11/24/14 [History] traMADol [Ultram] 100 mg PO Q6H PRN 11/24/14 [History] Ascorbic Acid [Vitamin C] 1,000 mg PO BID 06/04/16 [History] Lutein 10 mg PO DAILY 06/04/16 [History] Vitamin A 30,000 units PO DAILY 06/04/16 [History] Vitamin E 400 unit PO DAILY 06/04/16 [History] Amitriptyline [Elavil] 25 mg PO BEDTIME 09/04/16 [History] Clopidogrel Bisulfate [Clopidogrel] 75 mg PO DAILY 07/14/17 [History] Ezetimibe 10 mg PO DAILY 07/14/17 [History] Isosorbide Mononitrate [Isosorbide Mononitrate ER] 60 mg PO QAM 07/14/17 [History] Rosuvastatin [Crestor] 40 mg PO QPM 07/14/17 [History] Albuterol [Proair HFA] 1 - 2 puff INH Q4HR PRN #1 inhaler 07/15/17 [Rx] Nitroglycerin 0.4 mg SL ASDIRECTED PRN 06/28/19 [History] Pantoprazole Sodium 40 mg PO DAILY 06/28/19 [History] Ranolazine [Ranolazine ER] 1,000 mg PO BID 06/28/19 [History] metFORMIN HCl [Metformin HCl ER] 500 mg PO BIDMEALS 06/28/19 [History] Famotidine 20 mg PO BID PRN 12/06/19 [History] Metoprolol Succinate 75 mg PO QPM 12/06/19 [History] Triamcinolone Acetonide [Triamcinolone Acetonide 0.1% Crm] 1 dose TOP BID PRN 12/06/19 [History] amLODIPine Besylate [Amlodipine Besylate] 5 mg PO QPM 12/06/19 [History] Ibuprofen 400 mg PO Q6H PRN #28 tablet 04/09/20 [Rx] oxyCODONE HCl/Acetaminophen [Percocet 10-325 mg Tablet] 1 each PO Q4H PRN #18 tablet 04/09/20 [Rx] Past Medical History HEENT History: Reports: Cataract, Other (See Below) Other HEENT History: wears glasses Cardiovascular History: Reports: CAD, High Cholesterol, Hypertension, VT, PVD, Other (See Below) Other Cardiovascular History: states he had a heart attack during the angioplasty and then had a stent placed in 2018. Intracoronary radiation therapy in to prevent coronary artery around stent closing- per patient. Respiratory History: Reports: COPD, Sleep Apnea, SOB Other Respiratory History: he beleives his COPD is "chronic bronchitis", uses his inhaler approx. 3x per week- uses CPAP every night Gastrointestinal History: Reports: Colon Polyp, Diverticulosis, GERD Genitourinary History: Other Genitourinary History: Hematuria Musculoskeletal History: Reports: Back Pain, Chronic Neurological History: Reports: Headaches, Chronic, Migraines Other Neuro History: hx of head trauma from accident Psychiatric History: Reports: Anxiety Endocrine/Metabolic History: Reports: Diabetes, Type II, Obesity/BMI 30+ Hematologic History: Reports: Anticoagulation Therapy - Infectious Disease History Infectious Disease History: Reports: Chicken Pox - Past Surgical History Head Surgeries/Procedures: Reports: None Cardiovascular Surgical History: Reports: Coronary Artery Stent Other Cardiovascular Surgeries/Procedures: reports stent placed on 06/17/2017 GI Surgical History: Reports: Colonoscopy Male Surgical History: Reports: TURBT-Transurethral Resection of Bladder Tumor Other Male Surgeries/Procedures: states bladder tumors were benign Neurological Surgical History: Reports: Lumbar Spine Other Neurological Surgeries/Procedures: "back surgery" Musculoskeletal Surgical History: Reports: Arthroscopic Knee Other Musculoskeletal Surgeries/Procedures:: Right Knee Scope, Compression fracture to Low back, chronic back spasms Social & Family History - Family History Family Medical History: No Pertinent Family History - Caffeine Use Caffeine Use: Reports: Coffee - Recreational Drug Use Recreational Drug Use: No - Living Situation & Occupation Living situation: Reports: Occupation: Retired ED ROS GENERAL - Review of Systems Review Of Systems: See Below ED EXAM, GENERAL - Physical Exam Exam: See Below Course - Vital Signs Last Recorded V/S: Last Vital Signs Temp 98 F 10/03/20 11:51 Pulse 77 10/03/20 11:51 Resp 16 10/03/20 11:51 BP 155/89 H 10/03/20 11:51 Pulse Ox 94 L 10/03/20 11:51 - Orders/Labs/Meds Meds: Medications Discontinued Medications Generic Name Dose Route Start Last Admin Trade Name Freq PRN Reason Stop Dose Admin Cyclobenzaprine HCl 10 mg 10/03/20 12:03 10/03/20 12:22 Cyclobenzaprine 10 Mg Tab PO 10/03/20 12:04 10 mg ONETIME ONE Administration Ketorolac Tromethamine 15 mg 10/03/20 12:03 10/03/20 12:22 Ketorolac 15 Mg/Ml Sdv IM 10/03/20 12:04 15 mg ONETIME ONE Administration Lidocaine 700 mg 10/03/20 12:03 10/03/20 12:22 Lidocaine 5% 700 Mg Patch TOP 10/03/20 12:04 700 mg ONETIME ONE Administration Departure - Departure Time of Disposition: 14:28 Disposition: Home, Self-Care 01 Condition: Good Clinical Impression: Low back pain Qualifiers: Chronicity: acute Back pain laterality: midline Sciatica presence: without sciatica Qualified Code(s): M54.5 - Low back pain - Discharge Information Instructions: Acute Back Pain, Adult Referrals: PCP,None [Primary Care Provider] - Forms: ED Department Discharge Additional Instructions: You were seen and evaluated in the ER today secondary to pain to your back. The work-up in the ER has revealed no significant pathology identified on the CT scan. You will be discharged home and instructed to continue your Ultram and your Flexeril to help you with your pain. We will write you a prescription for your lidocaine patches to apply to the area of pain daily. Please make an appointment with your doctor as you may need another injection for your back pain. The following information is given to patients seen in the emergency department who are being discharged to home. This information is to outline your options for follow-up care. We provide all patients seen in our emergency department with a follow-up referral. The need for follow-up, as well as the timing and circumstances, are variable depending upon the specifics of your emergency department visit. If you don't have a primary care physician on staff, we will provide you with a referral. We always advise you to contact your personal physician following an emergency department visit to inform them of the circumstance of the visit and for follow-up with them and/or the need for any referrals to a consulting specialist. The emergency department will also refer you to a specialist when appropriate. This referral assures that you have the opportunity for follow-up care with a specialist. All of these measure are taken in an effort to provide you with optimal care, which includes your follow-up. Under all circumstances we always encourage you to contact your private physician who remains a resource for coordinating your care. When calling for follow-up care, please make the office aware that this follow-up is from your recent emergency room visit. If for any reason you are refused follow-up, please contact the [facility] Emergency Department at and asked to speak to the emergency department charge nurse. [facility] [address] [place] [address] [address] Sepsis Event Note (ED) - Evaluation Sepsis Screening Result: No Definite Risk - Focused Exam Vital Signs: Vital Signs Temp Pulse Resp BP Pulse Ox 10/03/20 11:51 98 F 77 16 155/89 H 94 L
--- NOTE | 2020-10-03 14:21 | CT ---
INDICATION: Low back pain TECHNIQUE: CT lumbar spine without contrast. COMPARISON: None FINDINGS: Vertebrae: Alignment is normal. There are no fractures or suspicious bony lesions. Discs and facet joints: Few broad based disc bulges causing minimal central canal stenosis in the lower lumbar spine. Extraspinal findings: Prevertebral soft tissues and visualized retroperitoneum are unremarkable. IMPRESSION: No acute findings to explain pain. There are few small disc bulges causing mild central canal stenosis in the lower lumbar spine. No convincing evidence for nerve root impingement. Please note that all CT scans at this facility use dose modulation, iterative reconstruction, and/or weight-based dosing when appropriate to reduce radiation dose to as low as reasonably achievable. Dictated by Kunal Gimenez MD @ 10/03/2020 2:20:[address] Kunal Gimenez @ Oct 03 2020 2:20PM
[2020-10-03 14:38] VITALS: BP 136/75; PULSE 74
== END 2020-10-03 14:43 | disposition home or self-care (01) ==
LOC: MW.ED 11:49
DX: M54.5 Low back pain (principal); E78.00 Pure hypercholesterolemia, unspecified; I10 Essential (primary) hypertension; I25.2 Old myocardial infarction; J44.9 Chronic obstructive pulmonary disease, unspecified; E66.9 Obesity, unspecified; K21.9 Gastro-esophageal reflux disease without esophagitis; Z88.5 Allergy status to narcotic agent; Z88.6 Allergy status to analgesic agent; Z88.8 Allergy status to other drugs, medicaments and biological substances; Z79.82 Long term (current) use of aspirin; E11.9 Type 2 diabetes mellitus without complications; Z68.34 Body mass index [BMI] 34.0-34.9, adult
CPT/HCPCS: 72131; 96372; 99284; A9270; J1885

== ENCOUNTER 2022-08-21 12:16 | Emergency (ER) | payer MEDICARE ==
[2022-08-21] MEDS: Cyclobenzaprine 10 MG Tab PO ONE (13:02)
[2022-08-21 14:54] VITALS: BP 122/74; PULSE 79
== END 2022-08-21 15:28 | disposition home or self-care (01) ==
LOC: MW.ED 12:16
DX: M54.50 Low back pain, unspecified (principal); G89.29 Other chronic pain; I25.10 Atherosclerotic heart disease of native coronary artery without angina pectoris; E78.00 Pure hypercholesterolemia, unspecified; I10 Essential (primary) hypertension; I25.2 Old myocardial infarction; J44.9 Chronic obstructive pulmonary disease, unspecified; E11.9 Type 2 diabetes mellitus without complications; E66.9 Obesity, unspecified; Z68.30 Body mass index [BMI] 30.0-30.9, adult; Z88.5 Allergy status to narcotic agent; Z88.8 Allergy status to other drugs, medicaments and biological substances; Z79.82 Long term (current) use of aspirin; Z79.02 Long term (current) use of antithrombotics/antiplatelets; Z79.4 Long term (current) use of insulin; Z79.899 Other long term (current) drug therapy; W18.09XA Striking against other object with subsequent fall, initial encounter
CPT/HCPCS: 70450; 70450-26; 72125; 72125-26; 72131; 72131-26; 99283; 99284

== ENCOUNTER 2022-10-24 07:21 | Day surgery (SDC) | payer MEDICARE ==
[~2022-10-24 07:21] MED LIST changes: -Propofol 200 MG/20 ML SDV ONE
[2022-10-24] MEDS ORDERED: Propofol 200 MG/20 ML SDV ONE (07:33)
[2022-10-24] MEDS ORDERED: Lactated Ringers 1,000 ML IV SCH (09:15)
[2022-10-24 13:13] VITALS: BP 119/63; PULSE 63
== END 2022-10-24 10:00 | disposition home or self-care (01) ==
LOC: MW.SDS 07:21
PROVIDERS: ATTEND Surgery
DX: D12.2 Benign neoplasm of ascending colon (principal); K57.30 Diverticulosis of large intestine without perforation or abscess without bleeding; J44.9 Chronic obstructive pulmonary disease, unspecified; E11.9 Type 2 diabetes mellitus without complications; I73.9 Peripheral vascular disease, unspecified; G47.33 Obstructive sleep apnea (adult) (pediatric); I10 Essential (primary) hypertension; F17.210 Nicotine dependence, cigarettes, uncomplicated; K21.9 Gastro-esophageal reflux disease without esophagitis; I25.2 Old myocardial infarction; E66.9 Obesity, unspecified; E78.00 Pure hypercholesterolemia, unspecified; I20.8 Other forms of angina pectoris; Z86.010 Personal history of colon polyps; Z98.1 Arthrodesis status; Z79.899 Other long term (current) drug therapy; Z88.5 Allergy status to narcotic agent; Z88.8 Allergy status to other drugs, medicaments and biological substances; Z68.31 Body mass index [BMI] 31.0-31.9, adult; Z95.810 Presence of automatic (implantable) cardiac defibrillator; Z88.6 Allergy status to analgesic agent
CPT/HCPCS: 45380; 82947; J2704; J7120; 88305